=== PATIENT | female | born 1955 | race American Indian/Alaskan Native ===

== ENCOUNTER 2017-01-25 23:12 | Emergency (ER) | payer MEDICAID ==
[2017-01-25] MEDS ORDERED: Butorphanol 2 MG/ML SDV IVPUSH ONE (23:23)
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
[2017-01-25 23:51] LABS: CHLORIDE,CL 106 mmol/L (101-111); SODIUM,NA 143 mmol/L (135-145)
[2017-01-25 23:58] VITALS: BP 119/78
== END 2017-01-26 01:06 | disposition home or self-care (01) ==
LOC: DL.ED 23:12
DX: S06.9X1A Unspecified intracranial injury with loss of consciousness of 30 minutes or less, initial encounter (principal); S00.83XA Contusion of other part of head, initial encounter; F10.920 Alcohol use, unspecified with intoxication, uncomplicated; M79.622 Pain in left upper arm; I10 Essential (primary) hypertension; F17.210 Nicotine dependence, cigarettes, uncomplicated; Z88.8 Allergy status to other drugs, medicaments and biological substances; Z79.899 Other long term (current) drug therapy; Y90.8 Blood alcohol level of 240 mg/100 ml or more; Y04.0XXA Assault by unarmed brawl or fight, initial encounter
CPT/HCPCS: 36415; 70450; 70486; 73060; 73551; 80053; 81001; 85025; 85610; 96374; 99285; G0480; J0595

== ENCOUNTER 2020-01-02 22:27 | Emergency (ER) | payer MEDICAID, OTHER ==
[2020-01-02 22:52] VITALS: BP 133/77; PULSE 83
--- NOTE | 2020-01-02 23:21 | EDM.PDOC ---
ED HPI GENERAL MEDICAL PROBLEM - General Chief Complaint: Gastrointestinal Problem Stated Complaint: SP.L. AMBULANCE Time Seen by Provider: 01/02/20 23:21 Source of Information: Reports: Patient History Limitations: Reports: No Limitations - History of Present Illness INITIAL COMMENTS - FREE TEXT/NARRATIVE: Patient comes emergency department today from home by ambulance with concerns of vomiting blood and rectal bleeding. This patient drinks alcohol on a daily basis anywhere from 6 to 24 cans of beer a day. She had her typical 8 cans of beer a day. She vomited multiple times at home today. One time she when she vomited she thought she saw bright red blood in her emesis. She then noticed tonight that she had a loose bowel movement that was bright red blood in nature and rather large amount. She is really unsure if it was vomit or if it was diarrhea or if it was stool she really does not remember. She has no chest pain shortness of breath or difficulty breathing. No weakness dizziness lightheadedness. No fever no chills. No COVID exposure. No COVID symptoms. She denies being on any blood thinners. She denies taking NSAIDs on a regular basis. Right Abdomen Pain Score (Numeric/FACES): 6 - Related Data Allergies Allergy/AdvReac Type Severity Reaction Status Date / Time aspirin Allergy Vomiting Verified 01/02/20 22:55 Home Meds: Home Meds Gabapentin [Neurontin] 300 mg PO TID 06/29/13 [History] Ibuprofen 400 mg PO Q6HR PRN 03/17/14 [History] Losartan [Cozaar] 100 mg PO DAILY 03/17/14 [History] Vitamins 1 tab PO DAILY 01/03/15 [History] Past Medical History - Past Health History Medical/Surgical History: Denies Medical/Surgical History HEENT History: Reports: Impaired Vision Cardiovascular History: Reports: Cardiomyopathy, Hypertension Respiratory History: Reports: None Gastrointestinal History: Reports: None Genitourinary History: Reports: None [employer]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: 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 Musculoskeletal History: Reports: Other (See Below) Other Musculoskeletal History: degenerative joint disease Neurological History: Reports: None Psychiatric History: Reports: Other (See Below) Other Psychiatric History: tobacco habituation Endocrine/Metabolic History: Reports: None Hematologic History: Reports: None Immunologic History: Reports: None Oncologic (Cancer) History: Reports: None Dermatologic History: Reports: None - Past Surgical History GI Surgical History: Reports: Cholecystectomy Social & Family History - Tobacco Use Smoking Status *Q: Current Every Day Smoker Years of Tobacco use: 46 Packs/Tins Daily: 0.5 - Caffeine Use Caffeine Use: Reports: Coffee - Alcohol Use Date of Last Drink: 01/02/20 - Recreational Drug Use Recreational Drug Use: No - Living Situation & Occupation Living situation: Reports: Occupation: Employed ED ROS GENERAL - Review of Systems Review Of Systems: Comprehensive ROS is negative, except as noted in HPI. ED EXAM, GI/ABD - Physical Exam Exam: See Below Exam Limited By: No Limitations General Appearance: Alert, WD/WN, No Apparent Distress Eyes: Bilateral: EOMI Ears: Normal External Exam Nose: Normal Inspection Throat/Mouth: Normal Inspection Head: Atraumatic, Normocephalic Neck: Normal Inspection, Supple, Non-Tender Respiratory/Chest: No Respiratory Distress, Lungs Clear, Normal Breath Sounds, No Accessory Muscle Use, Chest Non-Tender Cardiovascular: Normal Peripheral Pulses, Regular Rate, Rhythm GI/Abdominal Exam: Normal Bowel Sounds, Soft, Non-Tender, No Organomegaly, No Di stention (Female) Exam: Deferred, Vaginal Lesions Back Exam: Normal Inspection, Full Range of Motion Extremities: Normal Inspection, Normal Range of Motion, Non-Tender, Normal Capillary Refill Neurological: Alert, Oriented, Normal Cognition, No Motor/Sensory Deficits Psychiatric: Normal Affect, Normal Mood Skin Exam: Warm, Dry, Intact, Normal Color, No Rash EKG INTERPRETATION EKG Date: 01/03/20 Time: 23:28 Rhythm: NSR Rate (Beats/Min): 81 [place]: Normal P-Wave: Present QRS: LBBB ST-T: Normal QT: Normal Comparison: No Change Course - Vital Signs Last Recorded V/S: Last Vital Signs Temp 97.4 F 01/02/20 22:46 Pulse 83 01/02/20 22:46 Resp 18 01/02/20 22:46 BP 133/77 01/02/20 22:46 Pulse Ox 98 01/02/20 22:46 - Orders/Labs/Meds Orders: Active Orders 24 hr Category Date Time Status EKG Documentation Completion [RC] STAT Care 01/02/20 23:21 Active REFLEX LACTIC ACID YES OR NO [CHEM] Routine Lab 01/02/20 23:48 Received Labs: Laboratory Tests 01/02/20 01/02/20 01/02/20 Range/Units 22:49 22:49 22:49 WBC 4.8 L (5.0-10.0) 10^3/uL RBC 4.67 (4.2-5.4) 10^6/uL Hgb 14.8 (12.0-16.0) g/dL Hct 43.5 (37.0-47.0) % MCV 93.1 (80-100) fL MCH 31.7 (27.0-34.0) pg MCHC 34.0 (33.0-35.0) g/dL Plt Count 184 (150-450) 10^3/uL Neut % (Auto) 48.8 (42.2-75.2) % Lymph % (Auto) 37.7 (20.5-50.1) % [place] % (Auto) 9.7 H (2-8) % Eos % (Auto) 3.4 H (1.0-3.0) % Baso % (Auto) 0.4 (0.0-1.0) % PT 10.0 (9.0-12.0) SEC INR 1.1 (0.9-1.2) APTT 25.9 (22.0-34.0) SEC Sodium 141 (136-145) mmol/L Potassium 3.7 (3.5-5.1) mmol/L Chloride 104 (98-107) mmol/L Carbon Dioxide 27 (21-32) mmol/L Anion Gap 13.7 H (7-13) mEq/L BUN 11 (7-18) mg/dL Creatinine 0.59 (0.55-1.02) mg/dL Est Cr Clr Drug Dosing 82.51 mL/min Estimated GFR (MDRD) > 60 BUN/Creatinine Ratio 18.6 (No establ ref range) Glucose 92 (74-99) mg/dL Lactic Acid (0.4-2.0) mmol/L Calcium 8.4 L (8.5-10.1) mg/dL Total Bilirubin 0.6 (0.2-1.0) mg/dL AST 73 H (15-37) U/L ALT 80 H (14-59) U/L Alkaline Phosphatase 114 (46-116) U/L Troponin I < 0.017 (0.000-0.056) ng/mL Total Protein 8.0 (6.4-8.2) g/dL Albumin 3.8 (3.4-5.0) g/dL Globulin 4.2 Albumin/Globulin Ratio 0.9 Ethyl Alcohol 210 (0) mg/dL 01/02/20 Range/Units 22:49 WBC (5.0-10.0) 10^3/uL RBC (4.2-5.4) 10^6/uL Hgb (12.0-16.0) g/dL Hct (37.0-47.0) % MCV (80-100) fL MCH (27.0-34.0) pg MCHC (33.0-35.0) g/dL Plt Count (150-450) 10^3/uL Neut % (Auto) (42.2-75.2) % Lymph % (Auto) (20.5-50.1) % [place] % (Auto) (2-8) % Eos % (Auto) (1.0-3.0) % Baso % (Auto) (0.0-1.0) % PT (9.0-12.0) SEC INR (0.9-1.2) APTT (22.0-34.0) SEC Sodium (136-145) mmol/L Potassium (3.5-5.1) mmol/L Chloride (98-107) mmol/L Carbon Dioxide (21-32) mmol/L Anion Gap (7-13) mEq/L BUN (7-18) mg/dL Creatinine (0.55-1.02) mg/dL Est Cr Clr Drug Dosing mL/min Estimated GFR (MDRD) BUN/Creatinine Ratio (No establ ref range) Glucose (74-99) mg/dL Lactic Acid 2.5 H* (0.4-2.0) mmol/L Calcium (8.5-10.1) mg/dL Total Bilirubin (0.2-1.0) mg/dL AST (15-37) U/L ALT (14-59) U/L Alkaline Phosphatase (46-116) U/L Troponin I (0.000-0.056) ng/mL Total Protein (6.4-8.2) g/dL Albumin (3.4-5.0) g/dL Globulin Albumin/Globulin Ratio Ethyl Alcohol (0) mg/dL Meds: Medications Discontinued Medications Generic Name Dose Route Start Last Admin Trade Name Jase PRN Reason Stop Dose Admin Al Hydroxide/Mg Hydroxide 30 ml 01/03/20 01:55 01/03/20 01:59 Gi Cocktail PO 01/03/20 01:56 30 ml ONETIME ONE Administration Pantoprazole Sodium 80 mg 01/02/20 23:31 01/03/20 00:10 Protonix Iv IVPUSH 01/02/20 23:32 80 mg .BOLUS ONE Administration - Re-Assessments/Exams Free Text/Narrative Re-Assessment/Exam: 01/03/20 02:40 Patient initially was given Protonix 80 mg IV push due to the concerns of hematemesis and the reported bright red stools. Much rested and slept the rest of the time in the emergency department. She had no vomiting she had no more stools. EKG is unchanged from the previous. Her Hemoccult is very negative and a rectal exam is unremarkable there is clearly no blood in the rectal vault Under she does not have somewhat of a Vandana-Bean tear with all the vomiting that she had at home. We will start her on Carafate as well as Protonix. Luckily the surgeon is here next week so she can see if her primary care will get her set up with an EGD and a colonoscopy due to her complaints. Her hemoglobin is at 14 and her coags are normal. I really think that it is unlikely that she had this amount of rectal bleeding that she is reporting. We will discharge her home at this time she is comfortable with this plan and her questions are answered. Departure - Departure Time of Disposition: 01:50 Disposition: Home, Self-Care 01 Clinical Impression: Alcohol intoxication Qualifiers: Complication of substance-induced condition: uncomplicated Qualified Code(s): F10.920 - Alcohol use, unspecified with intoxication, uncomplicated Alcoholic gastritis with bleeding Qualifiers: Chronicity: acute Qualified Code(s): K29.21 - Alcoholic gastritis with bleeding - Discharge Information Instructions: Gastritis, Adult, [id number], Gastrointestinal Bleeding, [id number] Referrals: Noreen Kent, [facility] [Primary Care Provider] - Forms: ED Department Discharge Additional Instructions: STOP DRINKING ALCOHOL. See your PCP for tuesday and see if you can get an appointment with Dr. Sandoval the surgeon here next week for an EGD and colonoscopy to evaluate for the bleeding. Start Carafate 1 tablet 4 times a day before meals and at bedtime. RX given to the patient. Protonix 40mg daily for the next 28 days. RX given to the patient. Do not take any NSAIDs such as Aleve Naproxen Ibuprofen or Motrin. Return to the ED if new or worsening symptoms. Sepsis Event Note (ED) - Evaluation Sepsis Screening Result: No Definite Risk - Focused Exam Vital Signs: Vital Signs Temp Pulse Resp BP Pulse Ox 01/02/20 22:46 97.4 F 83 18 133/77 98 - My Orders Last 24 Hours: My Active Orders 01/02/20 23:21 EKG Documentation Completion [RC] STAT 01/02/20 23:48 REFLEX LACTIC ACID YES OR NO [CHEM] Routine - Assessment/Plan Last 24 Hours: My Active Orders 01/02/20 23:21 EKG Documentation Completion [RC] STAT 01/02/20 23:48 REFLEX LACTIC ACID YES OR NO [CHEM] Routine Assessment:: Hematemesis Acute alcohol intoxication in the presence of alcoholism. alcoholic gastritis. Plan: STOP DRINKING ALCOHOL. See your PCP for tuesday and see if you can get an appointment with Dr. Sandoval the surgeon here next week for an EGD and colonoscopy to evaluate for the bleeding. Start Carafate 1 tablet 4 times a day before meals and at bedtime. RX given to the patient. Protonix 40mg daily for the next 28 days. RX given to the patient. Do not take any NSAIDs such as Aleve Naproxen Ibuprofen or Motrin. Return to the ED if new or worsening symptoms.
[2020-01-02] MEDS ORDERED: Pantoprazole 40 MG Vial IVPUSH ONE (23:31)
[2020-01-02 23:43] LABS: ANION GAP 13.7 mEq/L (7-13); CHLORIDE,CL 104 mmol/L (98-107); SODIUM,NA 141 mmol/L (136-145)
[2020-01-02 23:59] LABS: PTT,PARTIAL THROMBOPLSTIN TIME 25.9 SEC (22.0-34.0)
[2020-01-03] MEDS ORDERED: GI Cocktail Oral Solution 30 ML PO ONE (01:55)
== END 2020-01-03 02:09 | disposition home or self-care (01) ==
LOC: DL.ED 22:27
DX: K29.01 Acute gastritis with bleeding (principal); F10.120 Alcohol abuse with intoxication, uncomplicated; I10 Essential (primary) hypertension; F17.210 Nicotine dependence, cigarettes, uncomplicated; Z88.6 Allergy status to analgesic agent; Z79.899 Other long term (current) drug therapy
CPT/HCPCS: 36415; 80053; 80307; 82272; 83605; 84484; 85025; 85610; 85730; 93005; 96374; 99284; A9270; C9113

== ENCOUNTER 2020-02-07 13:39 | Emergency (ER) | payer MEDICAID, OTHER ==
[2020-02-07 13:06] VITALS: BP 110/66; PULSE 104
--- NOTE | 2020-02-07 13:10 | EDM.PDOC ---
ED HPI GENERAL MEDICAL PROBLEM - General Chief Complaint: Abdominal Pain Stated Complaint: AB PAIN Time Seen by Provider: 02/07/20 13:00 Source of Information: Reports: Patient History Limitations: Reports: No Limitations - History of Present Illness INITIAL COMMENTS - FREE TEXT/NARRATIVE: This 64 yo female patient was sent to the ED from the [facility] due to right lower quadrant pain. The patient reports her symptoms started on Tuesday, but have been getting worse throughout the week. The patient was seen at the [facility] yesterday, but returned today due to increased pain. The patient did have labs done yesterday, but no labs done today and had a fever upon presentation at the [facility]. Onset Date: 02/04/20 Duration: Constant, Getting Worse Location: Reports: Abdomen (RLQ) Quality: Reports: Ache, Dull Severity: Moderate Improves with: Reports: None Worsens with: Reports: None Context: Reports: Other Associated Symptoms: Reports: No Other Symptoms Right Lower Abdominal Pain Score (Numeric/FACES): 8 - Related Data Allergies Allergy/AdvReac Type Severity Reaction Status Date / Time aspirin Allergy Vomiting Verified 02/07/20 13:06 Home Meds: Home Meds Gabapentin [Neurontin] 300 mg PO TID 06/29/13 [History] Ibuprofen 400 mg PO Q6HR PRN 03/17/14 [History] Losartan [Cozaar] 100 mg PO DAILY 03/17/14 [History] Vitamins 1 tab PO DAILY 01/03/15 [History] Fish Oil/[place]-3 Fatty Acids [Fish Oil 1,000 MG] 1 cap PO DAILY 02/07/20 [History] Past Medical History - Past Health History Medical/Surgical History: Denies Medical/Surgical History HEENT History: Reports: Impaired Vision Cardiovascular History: Reports: Cardiomyopathy, Hypertension Respiratory History: Reports: None Gastrointestinal History: Reports: None Genitourinary History: Reports: None 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 Musculoskeletal History: Reports: Other (See Below) Other Musculoskeletal History: degenerative joint disease Neurological History: Reports: None Psychiatric History: Reports: Other (See Below) Other Psychiatric History: tobacco habituation Endocrine/Metabolic History: Reports: None Hematologic History: Reports: None Immunologic History: Reports: None Oncologic (Cancer) History: Reports: None Dermatologic History: Reports: None - Past Surgical History GI Surgical History: Reports: Cholecystectomy Social & Family History - Caffeine Use Caffeine Use: Reports: Coffee - Living Situation & Occupation Living situation: Reports: Occupation: Employed ED ROS GENERAL - Review of Systems Review Of Systems: Comprehensive ROS is negative, except as noted in HPI. ED EXAM, GI/ABD - Physical Exam Exam: See Below Exam Limited By: No Limitations General Appearance: Alert, WD/WN, Moderate Distress Eyes: Bilateral: Normal Appearance, EOMI Ears: Normal External Exam, Normal Canal, Hearing Grossly Normal, Normal TMs Nose: Normal Inspection, Normal Mucosa, No Blood Throat/Mouth: Normal Inspection, Normal Lips, Normal Teeth, Normal Gums, Normal Oropharynx, Normal Voice, No Airway Compromise Head: Atraumatic, Normocephalic Neck: Normal Inspection, Supple, Non-Tender, Full Range of Motion Respiratory/Chest: No Respiratory Distress, Lungs Clear, Normal Breath Sounds, No Accessory Muscle Use, Chest Non-Tender Cardiovascular: Normal Peripheral Pulses, Regular Rate, Rhythm, No Edema, No Gallop, No JVD, No Murmur, No Rub GI/Abdominal Exam: Normal Bowel Sounds, No Organomegaly, No Distention, No Abnormal Bruit, No Mass, Pelvis Stable, Rebound, Tender (RLQ) (Female) Exam: Deferred Rectal (Female) Exam: Deferred Back Exam: Normal Inspection, Full Range of Motion, NT Extremities: Normal Inspection, Normal Range of Motion, Non-Tender, Normal Capillary Refill, No Pedal Edema Neurological: Alert, Oriented, CN II-XII Intact, Normal Cognition, Normal Gait, Normal Reflexes, No Motor/Sensory Deficits Psychiatric: Normal Affect, Normal Mood Skin Exam: Warm, Dry, Intact, Normal Color, No Rash Lymphatic: No Adenopathy Course - Vital Signs Last Recorded V/S: Last Vital Signs Temp 37.3 C 02/07/20 12:57 Pulse 104 H 02/07/20 12:57 Resp 16 02/07/20 12:57 BP 110/66 02/07/20 12:57 Pulse Ox 94 L 02/07/20 12:57 - Orders/Labs/Meds Labs: Laboratory Tests 02/07/20 02/07/20 02/07/20 Range/Units 13:13 13:37 13:37 WBC 3.8 L (5.0-10.0) 10^3/uL RBC 4.56 (4.2-5.4) 10^6/uL Hgb 14.4 (12.0-16.0) g/dL Hct 42.2 (37.0-47.0) % MCV 92.5 (80-100) fL MCH 31.6 (27.0-34.0) pg MCHC 34.1 (33.0-35.0) g/dL Plt Count 122 L (150-450) 10^3/uL Neut % (Auto) 57.2 (42.2-75.2) % Lymph % (Auto) 30.2 (20.5-50.1) % [place] % (Auto) 12.3 H (2-8) % Eos % (Auto) 0.3 L (1.0-3.0) % Baso % (Auto) 0.0 (0.0-1.0) % Sodium 132 L (136-145) mmol/L Potassium 3.7 (3.5-5.1) mmol/L Chloride 95 L (98-107) mmol/L Carbon Dioxide 27 (21-32) mmol/L Anion Gap 13.7 H (7-13) mEq/L BUN 11 (7-18) mg/dL Creatinine 0.74 (0.55-1.02) mg/dL Est Cr Clr Drug Dosing 65.78 mL/min Estimated GFR (MDRD) > 60 BUN/Creatinine Ratio 14.9 (No establ ref range) Glucose 95 (74-99) mg/dL Calcium 8.7 (8.5-10.1) mg/dL Total Bilirubin 0.6 (0.2-1.0) mg/dL AST 133 H (15-37) U/L ALT 106 H (14-59) U/L Alkaline Phosphatase 92 (46-116) U/L Total Protein 8.3 H (6.4-8.2) g/dL Albumin 3.5 (3.4-5.0) g/dL Globulin 4.8 Albumin/Globulin Ratio 0.7 Urine Color Yellow (YELLOW) Urine Appearance Clear (CLEAR) Urine pH 6.0 (5.0-9.0) Ur Specific [place] 1.015 (1.005-1.030) Urine Protein 30 H (NEGATIVE) Urine Glucose (UA) Negative (NEGATIVE) Urine Ketones Negative (NEGATIVE) Urine Occult Blood Negative (NEGATIVE) Urine Nitrite Negative (NEGATIVE) Urine Bilirubin Small H (NEGATIVE) Urine Urobilinogen 1.0 (0.2-1.0) mg/dL Ur Leukocyte Esterase Negative (NEGATIVE) Urine RBC 0-5 /HPF Urine WBC 0-5 (0-5/HPF) /HPF Ur Epithelial Cells Rare (NOT SEEN) /HPF Urine Bacteria Not seen (0-FEW/HPF) /HPF COVID-19 (PRASHANT) (NEGATIVE) 02/07/20 Range/Units 15:45 WBC (5.0-10.0) 10^3/uL RBC (4.2-5.4) 10^6/uL Hgb (12.0-16.0) g/dL Hct (37.0-47.0) % MCV (80-100) fL MCH (27.0-34.0) pg MCHC (33.0-35.0) g/dL Plt Count (150-450) 10^3/uL Neut % (Auto) (42.2-75.2) % Lymph % (Auto) (20.5-50.1) % [place] % (Auto) (2-8) % Eos % (Auto) (1.0-3.0) % Baso % (Auto) (0.0-1.0) % Sodium (136-145) mmol/L Potassium (3.5-5.1) mmol/L Chloride (98-107) mmol/L Carbon Dioxide (21-32) mmol/L Anion Gap (7-13) mEq/L BUN (7-18) mg/dL Creatinine (0.55-1.02) mg/dL Est Cr Clr Drug Dosing mL/min Estimated GFR (MDRD) BUN/Creatinine Ratio (No establ ref range) Glucose (74-99) mg/dL Calcium (8.5-10.1) mg/dL Total Bilirubin (0.2-1.0) mg/dL AST (15-37) U/L ALT (14-59) U/L Alkaline Phosphatase (46-116) U/L Total Protein (6.4-8.2) g/dL Albumin (3.4-5.0) g/dL Globulin Albumin/Globulin Ratio Urine Color (YELLOW) Urine Appearance (CLEAR) Urine pH (5.0-9.0) Ur Specific [place] (1.005-1.030) Urine Protein (NEGATIVE) Urine Glucose (UA) (NEGATIVE) Urine Ketones (NEGATIVE) Urine Occult Blood (NEGATIVE) Urine Nitrite (NEGATIVE) Urine Bilirubin (NEGATIVE) Urine Urobilinogen (0.2-1.0) mg/dL Ur Leukocyte Esterase (NEGATIVE) Urine RBC /HPF Urine WBC (0-5/HPF) /HPF Ur Epithelial Cells (NOT SEEN) /HPF Urine Bacteria (0-FEW/HPF) /HPF COVID-19 (PRASHANT) Negative (NEGATIVE) Meds: Medications Discontinued Medications Generic Name Dose Route Start Last Admin Trade Name Jase PRN Reason Stop Dose Admin Iopamidol 100 ml 02/07/20 14:20 02/07/20 14:55 Isovue-300 (61%) IVPUSH 02/07/20 14:21 75 ml ONETIME ONE Administration Departure - Departure Time of Disposition: 17:08 Disposition: Home, Self-Care 01 Condition: Fair Clinical Impression: Gastroenteritis - Discharge Information *PRESCRIPTION DRUG MONITORING PROGRAM REVIEWED*: Not Applicable *COPY OF PRESCRIPTION DRUG MONITORING REPORT IN PATIENT KATHRYN: Not Applicable Instructions: Viral Gastroenteritis, Adult, [id number] Forms: ED Department Discharge Care Plan Goals: The patient was advised of the examination, CT and lab results during the visit. The patient was encouraged to stick to a BRAT diet (bananas, rice, applesauce and toast) with small frequent sips of fluid. If the patient has any additional symptoms or concerns, the patient should either return to the emergency department or follow-up with her primary care facility. Sepsis Event Note (ED) - Focused Exam Vital Signs: Vital Signs Temp Pulse Resp BP Pulse Ox 02/07/20 12:57 37.3 C 104 H 16 110/66 94 L
[2020-02-07 14:11] LABS: ANION GAP 13.7 mEq/L (7-13); CHLORIDE,CL 95 mmol/L (98-107); SODIUM,NA 132 mmol/L (136-145)
[2020-02-07] MEDS ORDERED: Iopamidol 612 MG/ML 100 ML Bottle IVPUSH ONE (14:20)
--- NOTE | 2020-02-07 15:31 | CT ---
PROCEDURE INFORMATION: Exam: CT Abdomen And Pelvis With Contrast Exam date and time: 02/07/2020 2:49 PM Age: 64 years old Clinical indication: Other: Rlq abdominal pain TECHNIQUE: Imaging protocol: Computed tomography of the abdomen and pelvis with intravenous contrast. Radiation optimization: All CT scans at this facility use at least one of these dose optimization techniques: automated exposure control; mA and/or kV adjustment per patient size (includes targeted exams where dose is matched to clinical indication); or iterative reconstruction. Contrast material: ISOVUE 300; Contrast volume: 75 ml; Contrast route: INTRAVENOUS (IV); COMPARISON: No relevant prior studies available. FINDINGS: Limitations: Patient motion limits evaluation. Lungs: 3 incompletely imaged peripheral ground-glass opacities in the right lung base. 3 mm part solid right middle lobe pulmonary nodule (series 2, image 7). No routine follow-up is indicated. (Lois et al., Fleischner Society, 2017) Mild atelectasis in the visualized portions of the lung bases. Scattered pneumatoceles in the left lung base. Liver: Unremarkable. Gallbladder and bile ducts: Cholecystectomy. Pancreas: Unremarkable. Spleen: Unremarkable. Adrenals: Unremarkable. Kidneys and ureters: Tiny subcentimeter low-attenuation lesions in both kidneys, too small to characterize, likely simple cysts. No follow-up imaging is recommended. Stomach and bowel: Diverticulosis. Appendix: Unremarkable. Intraperitoneal space: No free intraperitoneal fluid or gas. Vasculature: Atherosclerotic calcifications of the aorta. Lymph nodes: No lymphadenopathy. Bladder: Partially decompressed urinary bladder. Reproductive: Unremarkable as visualized. Bones/joints: No suspicious lytic or blastic lesion. Soft tissues: Unremarkable. IMPRESSION: 1. Three incompletely imaged peripheral ground-glass opacities in the right lung base. Although incompletely imaged, commonly reported imaging features of COVID-19 pneumonia are present. Other processes such as influenza pneumonia and organizing pneumonia, as can be seen with drug toxicity and connective tissue disease, can cause a similar imaging pattern. Suggest further evaluation with a dedicated chest CT, if clinically indicated. References: Bridger Narvaez et al., Radiological Society of [place] Expert Consensus Statement on Reporting Chest CT Findings Related to COVID-19. Endorsed by the Society of Thoracic Radiology, the [place] [employer], and RSNA. Published September 19, 2019. 2. No imaging finding that correlates with right lower quadrant abdominal pain. 3. Patient motion limits evaluation.
== END 2020-02-07 17:28 | disposition home or self-care (01) ==
LOC: DL.ED 13:39
DX: K52.9 Noninfective gastroenteritis and colitis, unspecified (principal); I10 Essential (primary) hypertension; F17.210 Nicotine dependence, cigarettes, uncomplicated; Z20.828 Contact with and (suspected) exposure to other viral communicable diseases; Z88.8 Allergy status to other drugs, medicaments and biological substances; Z90.49 Acquired absence of other specified parts of digestive tract
CPT/HCPCS: 36415; 74177; 80053; 81001; 85025; 87635; 99282; 99284; Q9967; U0002

== ENCOUNTER 2020-02-14 22:25 | Emergency (ER) | payer MEDICAID, OTHER ==
[2020-02-14 23:24] LABS: ANION GAP 17.4 mEq/L (7-13); CHLORIDE,CL 99 mmol/L (98-107); SODIUM,NA 135 mmol/L (136-145)
[2020-02-14] MEDS ORDERED: Albuterol/Ipratropium 3.0-0.5 MG/3 ML Neb Soln NEB ONE (23:27)
[2020-02-14 23:50] VITALS: BP 130/48; PULSE 107
--- NOTE | 2020-02-14 23:57 | CT ---
PROCEDURE INFORMATION: Exam: CT Chest Without Contrast Exam date and time: 02/14/2020 11:30 PM Age: 64 years old Clinical indication: Cough and shortness of breath; Additional info: SOB postive covid TECHNIQUE: Imaging protocol: Computed tomography of the chest without contrast. Radiation optimization: All CT scans at this facility use at least one of these dose optimization techniques: automated exposure control; mA and/or kV adjustment per patient size (includes targeted exams where dose is matched to clinical indication); or iterative reconstruction. COMPARISON: No relevant prior studies available. FINDINGS: Lungs: There is a background of centrilobular emphysema. Patchy predominantly peripheral ground-glass opacities are present within the hemithoraces bilaterally, findings compatible with the patient's diagnosis of COVID-19 pneumonia. Pleural space: Unremarkable. No pneumothorax. No pleural effusion. Heart: Unremarkable. No cardiomegaly. No pericardial effusion. Aorta: Unremarkable. No aortic aneurysm. Lymph nodes: Unremarkable. No enlarged lymph nodes. Gallbladder and bile ducts: Status post cholecystectomy. Bones/joints: There is an S-shaped curvature of the axial skeleton. Soft tissues: Unremarkable. IMPRESSION: Patchy predominantly peripheral ground-glass opacities present within the hemithoraces bilaterally. Commonly reported imaging features of COVID-19 pneumonia are present. Other processes such as influenza pneumonia and organizing pneumonia, as can be seen with drug toxicity and connective tissue disease, can cause a similar imaging pattern. REFERENCES: Bridger Narvaez et al., Radiological Society of [place] Expert Consensus Statement on Reporting Chest CT Findings Related to COVID-19. Endorsed by the Society of Thoracic Radiology, the [place] [employer], and RSNA. Published September 19, 2019.
--- NOTE | 2020-02-15 00:40 | EDM.PDOC ---
ED HPI GENERAL MEDICAL PROBLEM - General Chief Complaint: Respiratory Problem Time Seen by Provider: 02/15/20 00:34 Source of Information: Reports: Patient, Old Records History Limitations: Reports: No Limitations - History of Present Illness INITIAL COMMENTS - FREE TEXT/NARRATIVE: pt was here on 13 Dx with pos covid and sent home was doing ok except for increasing coughing then tonight got more SOB. got NRB O2 en route and feel better. - Related Data Allergies Allergy/AdvReac Type Severity Reaction Status Date / Time aspirin Allergy Vomiting Verified 02/14/20 23:54 Home Meds: Home Meds Gabapentin [Neurontin] 300 mg PO TID 06/29/13 [History] Ibuprofen 400 mg PO Q6HR PRN 03/17/14 [History] Losartan [Cozaar] 100 mg PO DAILY 03/17/14 [History] Vitamins 1 tab PO DAILY 01/03/15 [History] Fish Oil/[place]-3 Fatty Acids [Fish Oil 1,000 MG] 1 cap PO DAILY 02/07/20 [History] Aspirin 325 mg PO DAILY 02/14/20 [History] Past Medical History - Past Health History Medical/Surgical History: Denies Medical/Surgical History HEENT History: Reports: Impaired Vision Other HEENT History: wears glasses Cardiovascular History: Reports: Cardiomyopathy, Heart Failure, Hypertension Respiratory History: Reports: None Gastrointestinal History: Reports: None Genitourinary History: Reports: None 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 Musculoskeletal History: Reports: Other (See Below) Other Musculoskeletal History: degenerative joint disease Neurological History: Reports: None Psychiatric History: Reports: Other (See Below) Other Psychiatric History: tobacco habituation Endocrine/Metabolic History: Reports: None Hematologic History: Reports: None Immunologic History: Reports: None Oncologic (Cancer) History: Reports: None Dermatologic History: Reports: None - Infectious Disease History Infectious Disease History: Reports: Novel Coronavirus - Past Surgical History Head Surgeries/Procedures: Reports: None GI Surgical History: Reports: Cholecystectomy Social & Family History - Tobacco Use Smoking Status *Q: Former Smoker Used Tobacco, but Quit: Yes Month/Year Tobacco Last Used: november 2019 Second Hand Smoke Exposure: Yes - Caffeine Use Caffeine Use: Reports: Coffee - Recreational Drug Use Recreational Drug Use: No - Living Situation & Occupation Living situation: Reports: Occupation: Employed ED ROS GENERAL - Review of Systems Review Of Systems: Comprehensive ROS is negative, except as noted in HPI. ED EXAM, GENERAL - Physical Exam Exam: See Below Exam Limited By: No Limitations General Appearance: Alert, WD/WN, Mild Distress, Moderate Distress, Other (discomfort cough spasms) Ears: Hearing Grossly Normal Throat/Mouth: Normal Voice, No Airway Compromise Head: Atraumatic Neck: Non-Tender, Full Range of Motion Respiratory/Chest: No Accessory Muscle Use, Decreased Breath Sounds, Rales, Rhonchi, Wheezing, Other (cough spasms) Cardiovascular: Regular Rate, Rhythm GI/Abdominal: Soft, Non-Tender Neurological: Alert, Oriented, Normal Cognition, Normal Gait, No Motor/Sensory Deficits Psychiatric: Flat Affect Skin Exam: Warm, Dry, Normal Color Lymphatic: No Adenopathy Course - Vital Signs Last Recorded V/S: Last Vital Signs Temp 37.4 C 02/14/20 23:50 Pulse 107 H 02/14/20 23:50 Resp 20 02/14/20 23:50 BP 130/48 L 02/14/20 23:50 Pulse Ox 90 L 02/14/20 23:50 - Orders/Labs/Meds Orders: Active Orders 24 hr Category Date Time Status RT Aerosol Therapy [RC] ASDIRECTED Care 02/14/20 23:27 Active CULTURE BLOOD [BC] Stat Lab 02/14/20 22:50 Received Labs: Laboratory Tests 02/14/20 02/14/20 02/14/20 Range/Units 22:50 22:50 22:50 WBC 7.5 (5.0-10.0) 10^3/uL RBC 4.09 L (4.2-5.4) 10^6/uL Hgb 12.9 D (12.0-16.0) g/dL Hct 36.8 L (37.0-47.0) % MCV 90.0 (80-100) fL MCH 31.5 (27.0-34.0) pg MCHC 35.1 H (33.0-35.0) g/dL Plt Count 292 D (150-450) 10^3/uL Neut % (Auto) 75.4 H (42.2-75.2) % Lymph % (Auto) 11.5 L (20.5-50.1) % [place] % (Auto) 10.6 H (2-8) % Eos % (Auto) 2.4 (1.0-3.0) % Baso % (Auto) 0.1 (0.0-1.0) % D-Dimer, Quantitative 1580 H (0-400) ng/mL Sodium 135 L (136-145) mmol/L Potassium 3.4 L (3.5-5.1) mmol/L Chloride 99 (98-107) mmol/L Carbon Dioxide 22 (21-32) mmol/L Anion Gap 17.4 H (7-13) mEq/L BUN 13 (7-18) mg/dL Creatinine 0.85 (0.55-1.02) mg/dL Est Cr Clr Drug Dosing 56.04 mL/min Estimated GFR (MDRD) > 60 BUN/Creatinine Ratio 15.3 (No establ ref range) Glucose 92 (74-99) mg/dL Lactic Acid (0.4-2.0) mmol/L Calcium 8.6 (8.5-10.1) mg/dL Total Bilirubin 0.9 (0.2-1.0) mg/dL AST 62 H (15-37) U/L ALT 58 (14-59) U/L Alkaline Phosphatase 80 (46-116) U/L Troponin I < 0.017 (0.000-0.056) ng/mL B-Natriuretic Peptide 24 (0-100) pg/ml Total Protein 7.7 (6.4-8.2) g/dL Albumin 2.6 L (3.4-5.0) g/dL Globulin 5.1 Albumin/Globulin Ratio 0.51 08/20/20 Range/Units 22:50 WBC (5.0-10.0) 10^3/uL RBC (4.2-5.4) 10^6/uL Hgb (12.0-16.0) g/dL Hct (37.0-47.0) % MCV (80-100) fL MCH (27.0-34.0) pg MCHC (33.0-35.0) g/dL Plt Count (150-450) 10^3/uL Neut % (Auto) (42.2-75.2) % Lymph % (Auto) (20.5-50.1) % [place] % (Auto) (2-8) % Eos % (Auto) (1.0-3.0) % Baso % (Auto) (0.0-1.0) % D-Dimer, Quantitative (0-400) ng/mL Sodium (136-145) mmol/L Potassium (3.5-5.1) mmol/L Chloride (98-107) mmol/L Carbon Dioxide (21-32) mmol/L Anion Gap (7-13) mEq/L BUN (7-18) mg/dL Creatinine (0.55-1.02) mg/dL Est Cr Clr Drug Dosing mL/min Estimated GFR (MDRD) BUN/Creatinine Ratio (No establ ref range) Glucose (74-99) mg/dL Lactic Acid 1.4 (0.4-2.0) mmol/L Calcium (8.5-10.1) mg/dL Total Bilirubin (0.2-1.0) mg/dL AST (15-37) U/L ALT (14-59) U/L Alkaline Phosphatase (46-116) U/L Troponin I (0.000-0.056) ng/mL B-Natriuretic Peptide (0-100) pg/ml Total Protein (6.4-8.2) g/dL Albumin (3.4-5.0) g/dL Globulin Albumin/Globulin Ratio Meds: Medications Discontinued Medications Generic Name Dose Route Start Last Admin Trade Name Freq PRN Reason Stop Dose Admin Albuterol/Ipratropium 3 ml 02/14/20 23:27 02/14/20 23:47 Duoneb 3.0-0.5 Mg/3 Ml NEB 02/14/20 23:28 3 ml ONETIME ONE Administration - Re-Assessments/Exams Free Text/Narrative Re-Assessment/Exam: 02/15/20 00:37 re-exam; s/p duoneb = better but not totally case discussed with Dr Fregoso @ how kindly accepted pt. Departure - Departure Time of Disposition: 00:38 Disposition: DC/Tfer to Acute Hospital 02 Condition: Fair Clinical Impression: Pneumonia due to COVID-19 virus - Discharge Information Forms: Interfacility Transfer EMTALA Sepsis Event Note (ED) - Evaluation Sepsis Screening Result: No Definite Risk - Focused Exam Vital Signs: Vital Signs Temp Pulse Resp BP Pulse Ox 02/14/20 23:50 37.4 C 107 H 20 130/48 L 90 L 02/14/20 22:27 37.4 C 108 H 20 122/59 L 93 L - My Orders Last 24 Hours: My Active Orders 02/14/20 22:50 CULTURE BLOOD [BC] Stat 02/14/20 23:27 RT Aerosol Therapy [RC] ASDIRECTED - Assessment/Plan Last 24 Hours: My Active Orders 02/14/20 22:50 CULTURE BLOOD [BC] Stat 02/14/20 23:27 RT Aerosol Therapy [RC] ASDIRECTED
== END 2020-02-15 01:42 ==
LOC: DL.ED 22:25
DX: U07.1 COVID-19 (principal); J12.89 Other viral pneumonia; I11.0 Hypertensive heart disease with heart failure; I50.9 Heart failure, unspecified; Z90.49 Acquired absence of other specified parts of digestive tract; Z88.6 Allergy status to analgesic agent; Z79.82 Long term (current) use of aspirin; Z79.899 Other long term (current) drug therapy; Z87.891 Personal history of nicotine dependence
CPT/HCPCS: 36415; 71250; 80053; 83605; 83880; 84484; 85025; 85379; 87040; 94640; 99284; 99285-25; J7620-GY

== ENCOUNTER 2020-11-30 11:20 | Emergency (ER) | payer MEDICAID, OTHER ==
[2020-11-30 11:33] VITALS: BP 130/72; PULSE 86
[2020-11-30] MEDS ORDERED: Sodium Chloride 0.9% 10 ML Syringe FLUSH PRN (11:43)
[2020-11-30] MEDS ORDERED: Albuterol/Ipratropium 3.0-0.5 MG/3 ML Neb Soln NEB ONE (11:44)
[2020-11-30] MEDS ORDERED: methylPREDNISolone Sodium Succinate 125 MG/2 ML SDV IVPUSH ONE (11:44)
[2020-11-30 12:29] LABS: ANION GAP 12.7 mEq/L (7-13); CHLORIDE,CL 105 mmol/L (98-107); SODIUM,NA 142 mmol/L (136-145)
--- NOTE | 2020-11-30 12:35 | CR ---
PROCEDURE INFORMATION: Exam: XR Chest Exam date and time: 11/30/2020 12:05 PM Age: 65 years old Clinical indication: Shortness of breath; Additional info: Chest pain, and cough/short of breath TECHNIQUE: Imaging protocol: XR of the chest. Views: 1 view. COMPARISON: CT Chest wo Cont 02/14/2020 11:30 PM FINDINGS: Lungs: Low lung volumes. No airspace disease or consolidation Pleural spaces: Unremarkable. No pleural effusion. No pneumothorax. Heart/Mediastinum: Unremarkable. No cardiomegaly. Bones/joints: Unremarkable. Soft tissues: Elpidio present on the right chest wall. IMPRESSION: No acute cardiopulmonary findings.
--- NOTE | 2020-11-30 12:45 | EDM.PDOC ---
Scribed by Sonia Salgado 11/30/20 1234 for Tiny Mccord MD ED HPI GENERAL MEDICAL PROBLEM - General Chief Complaint: Chest Pain Stated Complaint: SHORTNESS OF BREATH / CHEST PAIN Time Seen by Provider: 11/30/20 11:24 Source of Information: Reports: Patient, Old Records, RN, RN Notes Reviewed History Limitations: Reports: No Limitations - History of Present Illness INITIAL COMMENTS - FREE TEXT/NARRATIVE: Patient presents to ED by POV with complaints of shortness of breath and chest pain since . Patient also states she has had a sore throat and cough with sputum is thomas in color. Note nasal congestion, Pt states she has allergies, and COPD. She states she thinks she has bronchitis but isn't sure. She related that her symptoms began shortly after using her air conditioner. She denies fevers or chills. Former smoker. Uses nebulizer treatments as needed. Patient had COVID in January 2020, states she is fully vaccinated. Onset: Gradual Onset Date: 11/29/20 Duration: Constant, Getting Worse Location: Reports: Chest, Other (Throat) Quality: Reports: Burning, Sharp Severity: Moderate Improves with: Reports: None Worsens with: Reports: Breathing (Coughing) Associated Symptoms: Reports: No Other Symptoms throat/chest Pain Score (Numeric/FACES): 6 - Related Data Allergies Allergy/AdvReac Type Severity Reaction Status Date / Time aspirin Allergy Vomiting Verified 02/14/20 23:54 Home Meds: Home Meds Gabapentin [Neurontin] 300 mg PO TID 06/29/13 [History] Ibuprofen 400 mg PO Q6HR PRN 03/17/14 [History] Losartan [Cozaar] 100 mg PO DAILY 03/17/14 [History] Vitamins 1 tab PO DAILY 01/03/15 [History] Fish Oil/Ferney-3 Fatty Acids [Fish Oil 1,000 MG] 1 cap PO DAILY 02/07/20 [History] Past Medical History - Past Health History Medical/Surgical History: Denies Medical/Surgical History HEENT History: Reports: Impaired Vision Other HEENT History: wears glasses Cardiovascular History: Reports: Cardiomyopathy, Heart Failure, Hypertension Respiratory History: Reports: None Gastrointestinal History: Reports: None Genitourinary History: Reports: None 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 Musculoskeletal History: Reports: Other (See Below) Other Musculoskeletal History: degenerative joint disease Neurological History: Reports: None Psychiatric History: Reports: Other (See Below) Other Psychiatric History: tobacco habituation Endocrine/Metabolic History: Reports: None Hematologic History: Reports: None Immunologic History: Reports: None Oncologic (Cancer) History: Reports: None Dermatologic History: Reports: None - Infectious Disease History Infectious Disease History: Reports: Novel Coronavirus - Past Surgical History Head Surgeries/Procedures: Reports: None GI Surgical History: Reports: Cholecystectomy Social & Family History - Family History Family Medical History: No Pertinent Family History - Caffeine Use Caffeine Use: Reports: Coffee - Living Situation & Occupation Living situation: Reports: Occupation: Employed ED ROS GENERAL - Review of Systems Review Of Systems: Comprehensive ROS is negative, except as noted in HPI. ED EXAM, GENERAL - Physical Exam Exam: See Below Exam Limited By: No Limitations General Appearance: Alert, WD/WN, No Apparent Distress Eye Exam: Bilateral Eye: Normal Inspection Nose: No Blood, Nasal Drainage (Mild, clear) Throat/Mouth: Normal Lips, Normal Voice, No Airway Compromise, Other (Streaks of pharyngeal erythema with postnasal drip) Head: Atraumatic, Normocephalic Neck: Normal Inspection, Supple, Non-Tender, Full Range of Motion Respiratory/Chest: No Respiratory Distress, No Accessory Muscle Use, Decreased Breath Sounds, Crackles, Wheezing. No: Rales, Rhonchi Cardiovascular: Regular Rate, Rhythm, No Edema GI/Abdominal: Normal Bowel Sounds, Soft, Non-Tender Back Exam: Normal Inspection Extremities: Normal Inspection, Normal Range of Motion, Non-Tender, Normal Capillary Refill, No Pedal Edema Neurological: Alert, Oriented, CN II-XII Intact, Normal Cognition, Normal Gait, No Motor/Sensory Deficits Psychiatric: Normal Affect, Normal Mood Skin Exam: Warm, Dry, Intact, Normal Color, No Rash #1 Interpretation EKG Date: 11/30/20 Time: 11:26 Rhythm: Other (sinus rhythm) Rate (Beats/Min): 84 Dexter: Normal P-Wave: Present QRS: LBBB ST-T: Normal QT: Normal Comparison: No Change (from 01/02/2020) Course - Vital Signs Last Recorded V/S: Last Vital Signs Temp 97.4 F 11/30/20 11:32 Pulse 86 11/30/20 11:32 Resp 16 11/30/20 11:32 BP 130/72 11/30/20 11:32 Pulse Ox 94 L 11/30/20 11:32 - Orders/Labs/Meds Orders: Active Orders 24 hr Category Date Time Status EKG 12 Lead [EKG Documentation Completion] [RC] STAT Care 11/30/20 11:24 Active Peripheral IV Care [RC] . DIRECTED Care 11/30/20 11:44 Active RT Aerosol Therapy [RC] ASDIRECTED Care 11/30/20 11:44 Active CULTURE BLOOD [BC] Stat Lab 11/30/20 11:59 Received CULTURE BLOOD [BC] Stat Lab 11/30/20 11:59 Results STREP SCRN A RAPID W CULT CONF [RM] Stat Lab 11/30/20 12:32 Received Sodium Chloride 0.9% [Saline Flush] Med 11/30/20 11:43 Active 10 ml FLUSH ASDIRECTED PRN Blood Culture x2 Reflex Set [OM.PC] Stat Oth 11/30/20 11:43 Ordered Peripheral IV Insertion Adult [OM.PC] Stat Oth 11/30/20 11:44 Ordered Medication Orders Sodium Chloride (Sodium Chloride 0.9% 10 Ml Syringe) 10 ml FLUSH ASDIRECTED PRN PRN Reason: Keep Vein Open Last Admin: 11/30/20 12:00 Dose: 10 ml Documented by: VELASQUEZ Labs: Laboratory Tests 11/30/20 11/30/20 11/30/20 Range/Units 11:59 11:59 11:59 WBC 6.4 (5.0-10.0) 10^3/uL RBC 4.07 L (4.2-5.4) 10^6/uL Hgb 12.9 (12.0-16.0) g/dL Hct 38.7 (37.0-47.0) % MCV 95.1 D (80-100) fL MCH 31.7 (27.0-34.0) pg MCHC 33.3 (33.0-35.0) g/dL Plt Count 168 D (150-450) 10^3/uL Neut % (Auto) 53.8 (42.2-75.2) % Lymph % (Auto) 32.6 (20.5-50.1) % [place] % (Auto) 10.3 H (2-8) % Eos % (Auto) 3.0 (1.0-3.0) % Baso % (Auto) 0.3 (0.0-1.0) % Sodium 142 (136-145) mmol/L Potassium 3.7 (3.5-5.1) mmol/L Chloride 105 (98-107) mmol/L Carbon Dioxide 28 (21-32) mmol/L Anion Gap 12.7 (7-13) mEq/L BUN 12 (7-18) mg/dL Creatinine 0.69 (0.55-1.02) mg/dL Est Cr Clr Drug Dosing 72.62 mL/min Estimated GFR (MDRD) > 60 BUN/Creatinine Ratio 17.4 (No establ ref range) Glucose 98 (70-99) mg/dL Lactic Acid 1.2 (0.4-2.0) mmol/L Calcium 8.9 (8.5-10.1) mg/dL Total Bilirubin 0.7 (0.2-1.0) mg/dL AST 49 H (15-37) U/L ALT 77 H (14-59) U/L Alkaline Phosphatase 146 H (46-116) U/L Troponin I High Sens 6 (<=51) pg/mL B-Natriuretic Peptide 53 (0-100) pg/ml Total Protein 7.3 (6.4-8.2) g/dL Albumin 3.3 L (3.4-5.0) g/dL Globulin 4.0 Albumin/Globulin Ratio 0.83 Meds: Medications Generic Name Dose Route Start Last Admin Trade Name Freq PRN Reason Stop Dose Admin Sodium Chloride 10 ml 11/30/20 11:43 11/30/20 12:00 Sodium Chloride 0.9% 10 Ml Syringe FLUSH 10 ml ASDIRECTED PRN Administration Keep Vein Open Discontinued Medications Generic Name Dose Route Start Last Admin Trade Name Freq PRN Reason Stop Dose Admin Albuterol/Ipratropium 3 ml 11/30/20 11:44 11/30/20 11:52 Albuterol/Ipratropium 3.0-0.5 Mg/3 Ml Neb Soln NEB 11/30/20 11:45 3 ml ONETIME ONE Administration Methylprednisolone Sodium Succinate 125 mg 11/30/20 11:44 11/30/20 12:00 Methylprednisolone Sodium Succinate 125 Mg/2 Ml Sdv IVPUSH 11/30/20 11:45 125 mg ONETIME ONE Administration - Radiology Interpretation Free Text/Narrative:: [facility] [place] [facility] Final Radiology Report Call: [phone] assistance Online chat: [email or web address] Name: MELVINA BOYCE Age: 65Years F Date: 11/30/2020 SSN: -- : [id number] Study: CR CHEST 1V FRONTAL Requesting Physician: TINY MCCORD Images: 1 Addl Studies: Provided Clinical History: chest pain, and cough/short of breath Contrast: Contrast Medium: Contrast Amount: Contrast Method: CONFIDENTIALITY STATEMENT This report is intended only for use by the referring physician, and only in accordance with law. If you received this in error, call [phone]. Page 1 of 1 PROCEDURE INFORMATION: Exam: XR Chest Exam date and time: 11/30/2020 12:05 PM Age: 65 years old Clinical indication: Shortness of breath; Additional info: Chest pain, and cough/short of breath TECHNIQUE: Imaging protocol: XR of the chest. Views: 1 view. COMPARISON: CT Chest wo Cont 02/14/2020 11:30 PM FINDINGS: Lungs: Low lung volumes. No airspace disease or consolidation Pleural spaces: Unremarkable. No pleural effusion. No pneumothorax. Heart/Mediastinum: Unremarkable. No cardiomegaly. Bones/joints: Unremarkable. Soft tissues: Elpidio present on the right chest wall. IMPRESSION: No acute cardiopulmonary findings. Thank you for allowing us to participate in the care of your patient. Dictated and Authenticated by: Kale Ybarra MD 11/30/2020 12:35 PM Central Time ([place] & [place]) Departure - Departure Time of Disposition: 12:42 Disposition: Home, Self-Care 01 Condition: Good Clinical Impression: COPD with acute bronchitis, Postnasal drip, Pleuritic chest pain Instructions: Acute Bronchitis, Adult, Chronic Obstructive Pulmonary Disease Exacerbation, Sadu-[id number], Postnasal Drip Forms: ED Department Discharge Additional Instructions: Rx: Zithromax 500mg Rx: Tessalon Perles 200mg Rx: Prednisone 20mg Use your nebulizer every 4 hours while awake until cough and symptoms resolve. Follow up in clinic if not improving in 3 to 4 days. Sepsis Event Note (ED) - Focused Exam Vital Signs: Vital Signs Temp Pulse Resp BP Pulse Ox 11/30/20 11:32 97.4 F 86 16 130/72 94 L - My Orders Last 24 Hours: My Active Orders 11/30/20 11:24 EKG 12 Lead [EKG Documentation Completion] [RC] STAT 11/30/20 11:43 Sodium Chloride 0.9% [Saline Flush] 10 ml FLUSH ASDIRECTED PRN Blood Culture x2 Reflex Set [OM.PC] Stat 11/30/20 11:44 Peripheral IV Care [RC] . DIRECTED RT Aerosol Therapy [RC] ASDIRECTED Peripheral IV Insertion Adult [OM.PC] Stat 11/30/20 11:59 CULTURE BLOOD [BC] Stat CULTURE BLOOD [BC] Stat 11/30/20 12:32 STREP SCRN A RAPID W CULT CONF [RM] Stat - Assessment/Plan Last 24 Hours: My Active Orders 11/30/20 11:24 EKG 12 Lead [EKG Documentation Completion] [RC] STAT 11/30/20 11:43 Sodium Chloride 0.9% [Saline Flush] 10 ml FLUSH ASDIRECTED PRN Blood Culture x2 Reflex Set [OM.PC] Stat 11/30/20 11:44 Peripheral IV Care [RC] . DIRECTED RT Aerosol Therapy [RC] ASDIRECTED Peripheral IV Insertion Adult [OM.PC] Stat 11/30/20 11:59 CULTURE BLOOD [BC] Stat CULTURE BLOOD [BC] Stat 11/30/20 12:32 STREP SCRN A RAPID W CULT CONF [RM] Stat I have read and agree with the documentation that has been completed regarding this visit. By signing this record, I attest that the documentation was completed in my physical presence and is an accurate record of the encounter.
== END 2020-11-30 12:58 | disposition home or self-care (01) ==
LOC: DL.ED 11:20
DX: J44.9 Chronic obstructive pulmonary disease, unspecified (principal); J20.9 Acute bronchitis, unspecified; I11.0 Hypertensive heart disease with heart failure; I50.9 Heart failure, unspecified; Z86.16 Personal history of COVID-19; Z88.8 Allergy status to other drugs, medicaments and biological substances
CPT/HCPCS: 36415; 71045; 80053; 83605; 83880; 84484; 85025; 87040; 87081; 87430; 93005; 93010; 94640; 96374; 99284; 99285-25; J2930; J7620-GY

== ENCOUNTER 2021-10-21 18:10 | Emergency (ER) | payer MEDICARE, MEDICAID ==
[2021-10-21 20:05] LABS: ANION GAP 11.6 mEq/L (7-13); CHLORIDE,CL 102 mmol/L (98-107); SODIUM,NA 136 mmol/L (136-145)
[2021-10-21] MEDS ORDERED: Acetaminophen/oxyCODONE 325-5 MG Tab PO ONE (20:40)
[2021-10-21 21:39] VITALS: BP 126/99; PULSE 87
== END 2021-10-21 21:48 | disposition home or self-care (01) ==
LOC: DL.ED 18:10
DX: M25.551 Pain in right hip (principal); I11.0 Hypertensive heart disease with heart failure; I50.9 Heart failure, unspecified; Z88.8 Allergy status to other drugs, medicaments and biological substances; Z79.899 Other long term (current) drug therapy; Z86.16 Personal history of COVID-19; Z72.0 Tobacco use; Z96.641 Presence of right artificial hip joint
CPT/HCPCS: 36415; 71045; 80053; 81001; 83605; 85025; 87040; 87086; 99283; 99283-25; A9270-GY

== ENCOUNTER 2022-02-03 05:45 | Emergency (ER) | payer MEDICARE, MEDICAID ==
[2022-02-03 05:40] VITALS: BP 137/76; PULSE 96
[2022-02-03] MEDS: Ondansetron 4 MG/2 ML SDV IVPUSH ONE (06:40)
[2022-02-03] MEDS: fentaNYL 100 MCG/2 ML SDV IVPUSH ONE (06:40)
[2022-02-03] MEDS: Acetaminophen 500 MG Tab PO ONE (06:44)
[2022-02-03 06:54] LABS: ANION GAP 16.8 mEq/L (7-13); CHLORIDE,CL 103 mmol/L (98-107); SODIUM,NA 140 mmol/L (136-145)
[2022-02-03 06:55] LABS: ESTIMATED GFR 97 mL/min (>=60)
[2022-02-03 07:01] LABS: PTT,PARTIAL THROMBOPLSTIN TIME 26.9 SEC (22.0-34.0)
== END 2022-02-03 09:50 ==
LOC: DL.ED 05:45
DX: T84.010A Broken internal right hip prosthesis, initial encounter (principal); F10.929 Alcohol use, unspecified with intoxication, unspecified; I11.0 Hypertensive heart disease with heart failure; I50.9 Heart failure, unspecified; J44.9 Chronic obstructive pulmonary disease, unspecified; Z88.8 Allergy status to other drugs, medicaments and biological substances; Z86.16 Personal history of COVID-19; Z79.899 Other long term (current) drug therapy; Z20.822 Contact with and (suspected) exposure to COVID-19; Y90.8 Blood alcohol level of 240 mg/100 ml or more; W18.30XA Fall on same level, unspecified, initial encounter
CPT/HCPCS: 36415; 80053; 80307; 81003; 85025; 85610; 85730; 99285; A9270-GY; U0002

== ENCOUNTER 2022-02-24 12:43 | Emergency (ER) | payer MEDICARE, MEDICAID ==
[2022-02-24 12:51] VITALS: BP 159/74; PULSE 88
[2022-02-24 13:19] LABS: PTT,PARTIAL THROMBOPLSTIN TIME 27.4 SEC (22.0-34.0)
[2022-02-24 13:29] LABS: ANION GAP 15.5 mEq/L (7-13)
[2022-02-24] MEDS ORDERED: Iopamidol 755 Mg/ML 100 ML Bottle IVPUSH ONE (13:49)
[2022-02-24 14:06] LABS: CORONAVIRUS COVID-19 NAA NEGATIVE (NEGATIVE)
== END 2022-02-24 15:05 | disposition home or self-care (01) ==
LOC: DL.ED 12:43
DX: R06.02 Shortness of breath (principal); I11.0 Hypertensive heart disease with heart failure; I50.9 Heart failure, unspecified; Z88.8 Allergy status to other drugs, medicaments and biological substances; Z79.899 Other long term (current) drug therapy; Z79.82 Long term (current) use of aspirin; Z86.16 Personal history of COVID-19; Z20.822 Contact with and (suspected) exposure to COVID-19
CPT/HCPCS: 0240U; 36415; 71045; 71260; 80053; 81003; 83605; 83880; 84443; 84484; 85025; 85379; 85610; 85730; 93005; 99285; Q9967

== ENCOUNTER 2022-12-22 06:47 | Day surgery (SDC) | payer MEDICARE, MEDICAID ==
[2022-12-22] MEDS ORDERED: Sodium Chloride 0.9% 10 ML Syringe FLUSH PRN (07:00)
[2022-12-22] MEDS ORDERED: Acetaminophen 325 MG Tab PO PRN (07:00)
[2022-12-22] MEDS ORDERED: Ondansetron 4 MG/2 ML SDV IVPUSH PRN (07:00)
[2022-12-22] MEDS ORDERED: Timolol Maleate 0.5% Ophth Soln 5 ML Bottle EYELF ONE (07:00)
[2022-12-22] MEDS ORDERED: Cataract Ophth Solution EYELF ONE (07:00)
[2022-12-22] MEDS ORDERED: Povidone-Iodine 5% Sterile Ophth Soln 30 ML Bottle EYELF ONE ×2 (07:00→08:04)
[2022-12-22] MEDS ORDERED: Proparacaine 0.5% Ophth Soln 15 ML Bottle EYELF ONE ×2 (07:00→08:04)
[2022-12-22] MEDS ORDERED: Moxifloxacin 0.5% Ophth Soln 3 ML Bottle EYELF ONE (07:00)
[2022-12-22] MEDS ORDERED: Tropicamide 1% Ophth Soln 15 ML Bottle EYELF ONE (07:00)
[2022-12-22] MEDS ORDERED: Phenylephrine 10% Ophth Soln 5 ML Bot EYELF PRN (07:00)
[2022-12-22] MEDS ORDERED: Acetaminophen/Codeine 300-30 MG Tab PO PRN (07:00)
[2022-12-22] MEDS ORDERED: Lidocaine 1% 30 ML SDV ONE (08:09)
[2022-12-22] MEDS ORDERED: Balanced Salt Solution Ophth Irrig 15 ML Bottle EYELF ONE (08:11)
[2022-12-22] MEDS ORDERED: Chondroitin Sulfate/Hyaluronate Sodium Ophth Inj 0.5 ML Syringe IOCULAR ONE (08:12)
[2022-12-22] MEDS ORDERED: Vancomycin 500 MG SDV EYELF ONE (08:12)
[2022-12-22] MEDS ORDERED: Diclofenac Sodium 0.1% Ophth Soln 5 ML Bottle EYELF ONE (08:13)
[2022-12-22] MEDS ORDERED: Apraclonidine 0.5% Ophth Soln 5 ML Bot EYELF ONE (08:13)
[2022-12-22] MEDS ORDERED: Dexamethasone/Neomycin/Polymyxin B Ophth Oint 3.5 GM Tube EYELF ONE (08:14)
[2022-12-22] MEDS ORDERED: Dexamethasone 4 MG/ML SDV IOCULAR ONE (08:18)
[2022-12-22 08:50] VITALS: BP 154/85; PULSE 70
== END 2022-12-22 08:55 | disposition home or self-care (01) ==
LOC: DL.SDS 06:47
PROVIDERS: ATTEND Ophthalmology
DX: H25.812 Combined forms of age-related cataract, left eye (principal); I25.10 Atherosclerotic heart disease of native coronary artery without angina pectoris; I10 Essential (primary) hypertension; E55.9 Vitamin D deficiency, unspecified; M54.9 Dorsalgia, unspecified; R73.03 Prediabetes; M16.11 Unilateral primary osteoarthritis, right hip; E78.5 Hyperlipidemia, unspecified; M51.36 Other intervertebral disc degeneration, lumbar region; M85.80 Other specified disorders of bone density and structure, unspecified site; R79.89 Other specified abnormal findings of blood chemistry; E66.9 Obesity, unspecified; Z95.5 Presence of coronary angioplasty implant and graft; Z79.899 Other long term (current) drug therapy; Z87.891 Personal history of nicotine dependence; Z96.641 Presence of right artificial hip joint; Z68.31 Body mass index [BMI] 31.0-31.9, adult
CPT/HCPCS: 66984; A9270; J1100; J3370; V2632; J3490

== ENCOUNTER 2023-01-05 08:16 | Day surgery (SDC) | payer MEDICARE, MEDICAID ==
[2023-01-05] MEDS ORDERED: Povidone-Iodine 5% Sterile Ophth Soln 30 ML Bottle EYERT ONE ×2 (08:30→09:34)
[2023-01-05] MEDS ORDERED: Acetaminophen/Codeine 300-30 MG Tab PO PRN (08:30)
[2023-01-05] MEDS ORDERED: Tropicamide 1% Ophth Soln 15 ML Bottle EYERT ONE (08:30)
[2023-01-05] MEDS ORDERED: Acetaminophen 325 MG Tab PO PRN (08:30)
[2023-01-05] MEDS ORDERED: Moxifloxacin 0.5% Ophth Soln 3 ML Bottle EYERT ONE (08:30)
[2023-01-05] MEDS ORDERED: Timolol Maleate 0.5% Ophth Soln 5 ML Bottle EYERT ONE (08:30)
[2023-01-05] MEDS ORDERED: Phenylephrine 10% Ophth Soln 5 ML Bot EYERT ONE (08:30)
[2023-01-05] MEDS ORDERED: Cataract Ophth Solution EYERT ONE (08:30)
[2023-01-05] MEDS ORDERED: Ondansetron 4 MG/2 ML SDV IVPUSH PRN (08:30)
[2023-01-05] MEDS ORDERED: Proparacaine 0.5% Ophth Soln 15 ML Bottle EYERT ONE ×2 (08:30→09:33)
[2023-01-05] MEDS ORDERED: Apraclonidine 0.5% Ophth Soln 5 ML Bot EYERT ONE (09:35)
[2023-01-05] MEDS ORDERED: Diclofenac Sodium 0.1% Ophth Soln 5 ML Bottle EYERT ONE (09:35)
[2023-01-05] MEDS ORDERED: Dexamethasone/Neomycin/Polymyxin B Ophth Oint 3.5 GM Tube EYERT ONE (09:36)
[2023-01-05] MEDS ORDERED: Lidocaine 1% 30 ML SDV ONE (09:36)
[2023-01-05] MEDS ORDERED: Dexamethasone 4 MG/ML SDV IOCULAR ONE (09:38)
[2023-01-05] MEDS ORDERED: Balanced Salt Solution Ophth Irrig 500 ML Bottle EYERT ONE (09:39)
[2023-01-05] MEDS ORDERED: Vancomycin 500 MG SDV EYERT ONE (09:40)
[2023-01-05] MEDS ORDERED: Chondroitin Sulfate/Hyaluronate Sodium Ophth Inj 0.75 ML Syringe EYERT ONE (09:41)
[2023-01-05] MEDS ORDERED: Trypan Blue 0.06% Ophth Soln 0.5 ML Syringe EYERT ONE (09:42)
[2023-01-05 11:41] VITALS: BP 144/66; PULSE 67
== END 2023-01-05 10:29 | disposition home or self-care (01) ==
LOC: DL.SDS 08:16
PROVIDERS: ATTEND Ophthalmology
DX: H26.9 Unspecified cataract (principal); I25.10 Atherosclerotic heart disease of native coronary artery without angina pectoris; I10 Essential (primary) hypertension; E55.9 Vitamin D deficiency, unspecified; R79.89 Other specified abnormal findings of blood chemistry; E78.5 Hyperlipidemia, unspecified; R73.03 Prediabetes; M85.80 Other specified disorders of bone density and structure, unspecified site; M16.11 Unilateral primary osteoarthritis, right hip; E66.9 Obesity, unspecified; Z79.899 Other long term (current) drug therapy; Z88.8 Allergy status to other drugs, medicaments and biological substances; Z68.31 Body mass index [BMI] 31.0-31.9, adult
CPT/HCPCS: 00142; 66982; A9270; J1100; J3370; J3490

== ENCOUNTER 2024-08-18 16:25 | Emergency (ER) | payer MEDICAID, MEDICARE, OTHER ==
[2024-08-18] MEDS: Sodium Chloride 0.9% 1,000 ML IV SCH (17:06)
[2024-08-18 17:15] LABS: BASOPHILS PERCENT AUTO 0.3 % (0.0-1.0); HEMATOCRIT 39.2 % (37.0-47.0); HEMOGLOBIN 13.4 g/dL (12.0-16.0); LYMPHOCYTES PERCENT AUTO 9.9 % (20.5-50.1); MEAN CORPUSCULAR HEMOGLOBIN 32.8 pg (27.0-34.0); MEAN CORPUSCULAR HGB CONC 34.2 g/dL (33.0-35.0); MEAN CORPUSCULAR VOLUME 96.1 fL (80-100); MONOCYTES PERCENT AUTO 12.3 % (2-8); NEUTROPHILS PERCENT AUTO 76.5 % (42.2-75.2); PLATELET COUNT,PLT 190 10^3/uL (150-450); RED BLOOD CELL COUNT 4.08 10^6/uL (4.2-5.4); WHITE BLOOD CELL COUNT,WBC 7.9 10^3/uL (5.0-10.0)
[2024-08-18 17:22] LABS: BILIRUBIN,URINE NEGATIVE (NEGATIVE); COLOR,URINE YELLOW (YELLOW); GLUCOSE,URINE NEGATIVE (NEGATIVE); KETONES,URINE NEGATIVE (NEGATIVE); LEUKOCYTE ESTERASE,URINE MODERATE (NEGATIVE); NITRITE,URINE NEGATIVE (NEGATIVE); OCCULT BLOOD,URINE TRACE-INTACT (NEGATIVE); PH,URINE 6.5 (5.0-9.0); PROTEIN,URINE NEGATIVE (NEGATIVE); UROBILINOGEN,URINE 0.2 mg/dL (0.2-1.0)
[2024-08-18 17:23] LABS: APPEARANCE,URINE SLIGHTLY CLOUDY (CLEAR)
[2024-08-18 17:34] LABS: BACTERIA,URINE FEW /HPF (0-FEW/HPF); EPITHELIAL CELLS,URINE FEW /HPF (NOT SEEN); WBC,URINE 40-50 /HPF (0-5/HPF)
[2024-08-18 17:41] LABS: ANION GAP 16.1 mEq/L (7-13); BILIRUBIN DIRECT 0.2 mg/dL (0.0-0.2); BILIRUBIN INDIRECT 0.3; BILIRUBIN TOTAL 0.5 mg/dL (0.2-1.0); CREATININE 0.85 mg/dL (0.55-1.02); EST CRCL DRUG DOSING (CG) 52.4 mL/min; POTASSIUM,K 4.1 mmol/L (3.5-5.1); PROTEIN TOTAL,TP 7.8 g/dL (6.4-8.2)
[2024-08-18 17:57] LABS: A/G RATIO 0.63
[2024-08-18] MEDS: Take Home: Ciprofloxacin HCl 500 MG, 6 Tab Pack PO ONE (18:44)
[2024-08-18 18:46] VITALS: BP 113/72; PULSE 100
[2024-08-18] MEDS: Acetaminophen 325 MG Tab PO ONE (18:52)
== END 2024-08-18 19:01 | disposition home or self-care (01) ==
LOC: DL.ED 16:25
DX: J06.9 Acute upper respiratory infection, unspecified (principal); N39.0 Urinary tract infection, site not specified; I11.0 Hypertensive heart disease with heart failure; I50.9 Heart failure, unspecified; J44.9 Chronic obstructive pulmonary disease, unspecified; Z86.16 Personal history of COVID-19; Z90.49 Acquired absence of other specified parts of digestive tract; Z88.6 Allergy status to analgesic agent; Z79.51 Long term (current) use of inhaled steroids; Z79.899 Other long term (current) drug therapy
CPT/HCPCS: 36415; 71045; 80048; 80076; 81001; 84484; 85025; 87040; 87086; 87088; 87186; 87428; 93005; 93010; 96360; 96361; 99284; 99285; A9270; J7030

== ENCOUNTER 2024-11-27 06:08 | Emergency (ER) | payer MEDICAID, MEDICARE, OTHER ==
[2024-11-27] MEDS ORDERED: Sodium Chloride 0.9% 10 ML Syringe FLUSH PRN (06:15)
[2024-11-27 06:42] LABS: BASOPHILS PERCENT AUTO 0.6 % (0.0-1.0); EOSINOPHILS PERCENT AUTO 4.4 % (1.0-3.0); HEMATOCRIT 42.5 % (37.0-47.0); HEMOGLOBIN 14.6 g/dL (12.0-16.0); MEAN CORPUSCULAR HEMOGLOBIN 33.6 pg (27.0-34.0); MEAN CORPUSCULAR HGB CONC 34.4 g/dL (33.0-35.0); MEAN CORPUSCULAR VOLUME 97.9 fL (80-100); MONOCYTES PERCENT AUTO 8.7 % (2-8); NEUTROPHILS PERCENT AUTO 53.3 % (42.2-75.2); PLATELET COUNT,PLT 175 10^3/uL (150-450); RED BLOOD CELL COUNT 4.34 10^6/uL (4.2-5.4); WHITE BLOOD CELL COUNT,WBC 6.8 10^3/uL (5.0-10.0)
[2024-11-27 07:03] LABS: ALBUMIN 3.1 g/dL (3.4-5.0); ANION GAP 16.9 mEq/L (7-13); BILIRUBIN TOTAL 0.9 mg/dL (0.2-1.0); BUN/CREATININE RATIO 8.2 (No establ ref range); CALCIUM 9.1 mg/dL (8.5-10.1); CREATININE 0.49 mg/dL (0.55-1.02); EST CRCL DRUG DOSING (CG) 86.91 mL/min; POTASSIUM,K 3.9 mmol/L (3.5-5.1); PROTEIN TOTAL,TP 8.3 g/dL (6.4-8.2)
[2024-11-27 07:06] LABS: A/G RATIO 0.6
[2024-11-27] MEDS: Pantoprazole 40 MG Vial IVPUSH ONE (07:07)
[2024-11-27] MEDS: Acetaminophen 500 MG Tab PO ONE (08:42)
[2024-11-27] MEDS: Acetaminophen 500 MG Tab ONE (08:57)
[2024-11-27 09:13] VITALS: BP 96/61; PULSE 83
== END 2024-11-27 08:55 | disposition home or self-care (01) ==
LOC: DL.ED 06:08
DX: S49.92XA Unspecified injury of left shoulder and upper arm, initial encounter (principal); I11.0 Hypertensive heart disease with heart failure; I50.9 Heart failure, unspecified; J44.9 Chronic obstructive pulmonary disease, unspecified; Z86.16 Personal history of COVID-19; Z90.49 Acquired absence of other specified parts of digestive tract; Z79.899 Other long term (current) drug therapy; Z88.8 Allergy status to other drugs, medicaments and biological substances; W19.XXXA Unspecified fall, initial encounter
CPT/HCPCS: 36415; 71045; 73030; 80053; 80307; 82550; 83735; 84484; 85025; 93005; 96374; 99285; A9270; J2470

== ENCOUNTER 2025-01-04 03:47 | Emergency (ER) | payer OTHER ==
[~2025-01-04 03:47] MED LIST: Bacitracin Oint 1 GM U/D Packet TOP ONE; Diphtheria,Pertussis(Acell),Tetanus Vaccine 0.5 ML Syringe IM ONE
[2025-01-04 04:35] LABS: BASOPHILS PERCENT AUTO 0.3 % (0.0-1.0); EOSINOPHILS PERCENT AUTO 3.4 % (1.0-3.0); LYMPHOCYTES PERCENT AUTO 30.8 % (20.5-50.1); MONOCYTES PERCENT AUTO 9.5 % (2-8); NEUTROPHILS PERCENT AUTO 56.0 % (42.2-75.2); PLATELET COUNT,PLT 156 10^3/uL (150-450); RED BLOOD CELL COUNT 4.25 10^6/uL (4.2-5.4); WHITE BLOOD CELL COUNT,WBC 7.1 10^3/uL (5.0-10.0)
[2025-01-04 04:56] LABS: BLOOD UREA NITROGEN,BUN 4.0 mg/dL (7-18); CARBON DIOXIDE,CO2 23.0 mmol/L (21-32); CHLORIDE,CL 102.0 mmol/L (98-107); CREATININE 0.54 mg/dL (0.55-1.02); EST CRCL DRUG DOSING (CG) 84.29 mL/min; GLUCOSE RANDOM 112.0 mg/dL (70-99); POTASSIUM,K 3.9 mmol/L (3.5-5.1); PROTEIN TOTAL,TP 8.4 g/dL (6.4-8.2); SODIUM,NA 136.0 mmol/L (136-145)
[2025-01-04 04:57] LABS: A/G RATIO 0.62; ALANINE AMINOTRANSFERASE,ALT 39.0 U/L (14-59); ASPARTATE AMNIOTRANSFERASE,AST 72.0 U/L (15-37); BILIRUBIN TOTAL 0.9 mg/dL (0.2-1.0); ESTIMATED GFR 100.0 mL/min (>=60); ETHANOL BLOOD MEDICAL 283.0 mg/dL (0)
[2025-01-04] MEDS ORDERED: Bacitracin Oint 1 GM U/D Packet TOP ONE (05:04)
== END 2025-01-04 09:33 | disposition home or self-care (01) ==
LOC: DL.ED 03:47
DX: S06.0X1A Concussion with loss of consciousness of 30 minutes or less, initial encounter (principal); S02.831A Fracture of medial orbital wall, right side, initial encounter for closed fracture; S42.001A Fracture of unspecified part of right clavicle, initial encounter for closed fracture; S02.2XXA Fracture of nasal bones, initial encounter for closed fracture; S01.111A Laceration without foreign body of right eyelid and periocular area, initial encounter; I11.0 Hypertensive heart disease with heart failure; I50.9 Heart failure, unspecified; J44.9 Chronic obstructive pulmonary disease, unspecified; Z90.49 Acquired absence of other specified parts of digestive tract; Z88.6 Allergy status to analgesic agent; Z79.899 Other long term (current) drug therapy; Z79.51 Long term (current) use of inhaled steroids; Z23 Encounter for immunization; Y90.9 Presence of alcohol in blood, level not specified; W10.9XXA Fall (on) (from) unspecified stairs and steps, initial encounter; Y93.89 Activity, other specified
CPT/HCPCS: 12013; 36415; 70450; 70486; 71045; 72125; 73030; 80053; 80307; 85014; 85018; 85025; 90471; 96360; 99284; 99285; A9270; J2003; J7030